=== PATIENT | male | born 1945 | race Caucasian/White ===

== ENCOUNTER 2025-04-03 11:44 | Inpatient (IN) | payer BC, SELFPAY ==
[2025-04-03] VITALS (14 sets, daily range): BP systolic 86–134; BP diastolic 53–80; BMI 32.6
--- NOTE | 2025-04-03 07:01 | ED.GENMED ---
History of Present Illness
<Chata Christianson MD, Resident - Last Filed: 04/03/25 07:35>
General
Chief Complaint: Chest Pain
Source: patient and spouse
Time Seen by Provider: 04/03/25 06:33
History of Present Illness
History of Present Illness:
Patient is an 79-year-old male with past medical history significant for recently diagnosed myasthenia gravis (ocular, taking pyridostigmine), COPD under treating himself, hypertension, family history of massive heart attack in father in 40s with
aortic complaint of chest pain.
He had pressure in his chest on Friday, he went to [facility], which checked his ECG which was normal, they also recommended blood work, chest x-ray, CT chest which could take hours so the patient decided to go home and follow-up with his
primary doctor. The CT scan was done a week ago to evaluate Hodgkin's lymphoma which is common with myasthenia gravis. It came back negative but there were some calcification observed in his major vessels. Patient had the similar chest
discomfort with increased intensity last night with some nausea, but it went away on its own. This morning he woke up again with severe chest pressure that was causing him shortness of breath and he felt very sick this way came to the ER for
further evaluation.
Denies any nausea, vomiting, abdominal pain, body aches
Past History
<Chata Christianson MD, Resident - Last Filed: 04/03/25 07:35>
Past History
ED Past Medical History: COPD, GERD, HTN and Other (Myasthenia gravis)
ED Past Surgical History: None
Social History
Tobacco: Non-smoker
Alcohol: Occasional
Living: with family
Family History
Family History: Early CAD
Review of Systems
<Chata Christianson MD, Resident - Last Filed: 04/03/25 07:35>
Review of Systems
All Other Systems: ROS reviewed and negative except as documented in HPI and ROS
<Blsosom Dong MD - Last Filed: 04/03/25 10:41>
Review of Systems
Allergies reviewed?: Yes
Constitutional: Reports no symptoms
EENT: Reports no symptoms
Respiratory: Reports cough and trouble breathing
Cardiac: Reports no symptoms
ABD/GI: Reports no symptoms
: Reports no symptoms
Musculoskeletal: Reports no symptoms
Skin: Reports no symptoms
Neurological: Reports no symptoms
Endocrine: Reports no symptoms
Hematologic/Lymphatic: Reports no symptoms
Psychiatric: Reports no symptoms
Phy Exam
<Chata Christianson MD, Resident - Last Filed: 04/03/25 07:35>
General Physical Exam
General Presentation: moderate distress (dur tp sob and increased WOB)
General age: appears stated age
General Skin: warm and dry
General Habitus: normal
Cardiovascular Exam
Cardiovascular Exam: regular rate/rhythm, no edema, no gallop and no murmur
Pulmonary Exam
Pulmonary Exam: generalized wheezing
Respirations: accessory muscle use and labored
Neurological Exam
Neurological Exam: alert, oriented x3 and no motor deficits
Musculoskeletal Exam
Musculoskeletal Exam: full ROM
Psychiatric Exam
Psychiatric Exam: normal mood/affect
<Blossom Dong MD - Last Filed: 04/03/25 10:41>
Physical Exam
Physical Exam:
Physical Exam
General: Patient is tachypneic at rest but speaks in full sentences
Neck: supple. no meningeal signs. normal psoterior pharynx
Heart: Tachycardic
Lungs: Mild tachypnea. Diffuse wheezing bilaterally. Right sided crackles
Abdomen: normal bowel sounds. not tender. no CVAT
Neuro: alert and oriented. no focal neurological deficits
Skin: no rash
Psychiatric: well kept. interactive and cooperative
Extremities: no edema. no calf tenderness. negative homans. good distal pulses
Scores
<Chata Christianson MD, Resident - Last Filed: 04/03/25 07:35>
Heart Score for Chest Pain Patients
STEMI patient?: Not applicable
Course
<Chata Christianson MD, Resident - Last Filed: 04/03/25 07:35>
Orders/Labs/Results
Orders:
Orders
04/03/25 05:52
ECG [Electrocardiogram (*1)] Urgent
Reason for Study: Chest Pain
EKG- Treatment ONCE
04/03/25 07:23
CT Chest PE Study Urgent
Comment:
Reason For Exam: SOB, CP
04/03/25 07:30
Albuterol Sulfate [Ventolin Nebules] 15 mg INH R NOW STA
04/03/25 07:31
Dexamethasone Sod Phosphate [Decadron] 10 mg IV NOW STA
04/03/25 07:53
COVID-19 Antigen Urgent
Source: Nasal Swab
Complete Blood Count/With Diff Urgent
Comprehensive Metabolic Panel Urgent
Lipase Urgent
NT-proBNP Urgent
Troponin I Urgent
Influenza A+B Rapid Molecular Urgent
EDGARD Source: Nasal Swab
Specimen Description:
04/03/25 10:37
Azithromycin 500 mg/250 ml [Zithromax Infusion] 500 mg in 250 ml IV NOW
CefTRIAXone [Rocephin] 1,000 mg IV NOW STA
Abnormal Lab Results
04/03/25
07:53
WBC 24.8 H 10^3/uL
(4.8-10.8)
RBC 4.50 L 10^6/uL
(4.70-6.10)
Hct 38.7 L %
(39.0-52.0)
Abs Immat Gran (auto) 0.2 H 10^3/uL
(0-0.05)
Absolute Neuts (auto) 22.0 H 10^3/uL
(1.4-6.5)
Absolute Lymphs (auto) 1.0 L 10^3/uL
(1.2-3.4)
Absolute Monos (auto) 1.2 H 10^3/uL
(0.1-0.6)
Immature Gran % 0.6 H %
(0-0.5)
Neutrophils % 89.1 H %
(42.2-75.2)
Lymphocytes % 4.1 L %
(20.5-51.1)
Sodium 134 L mmol/L
(135-145)
BUN 26 H mg/dl
(9-20)
Glucose 121 H mg/dl
(70-99)
04/03/25 07:53
04/03/25 07:53
Vital Signs
Initial and Last Documented VS:
Initial Vital Signs
Temp Pulse Resp BP Pulse Ox
97.9 F 111 20 122/76 94
04/03/25 05:54 04/03/25 05:54 04/03/25 05:54 04/03/25 05:54 04/03/25 05:54
Last Documented Vital Signs
Temp Pulse Resp BP Pulse Ox
97.9 F 126 24 125/59 94
04/03/25 05:54 04/03/25 10:00 04/03/25 10:00 04/03/25 09:54 04/03/25 09:00
<Blossom Dong MD - Last Filed: 04/03/25 10:41>
Orders/Labs/Results
Orders:
Orders
04/03/25 05:52
ECG [Electrocardiogram (*1)] Urgent
Reason for Study: Chest Pain
EKG- Treatment ONCE
04/03/25 07:23
CT Chest PE Study Urgent
Comment:
Reason For Exam: SOB, CP
04/03/25 07:30
Albuterol Sulfate [Ventolin Nebules] 15 mg INH R NOW STA
04/03/25 07:31
Dexamethasone Sod Phosphate [Decadron] 10 mg IV NOW STA
04/03/25 07:53
COVID-19 Antigen Urgent
Source: Nasal Swab
Complete Blood Count/With Diff Urgent
Comprehensive Metabolic Panel Urgent
Lipase Urgent
NT-proBNP Urgent
Troponin I Urgent
Influenza A+B Rapid Molecular Urgent
EDGARD Source: Nasal Swab
Specimen Description:
04/03/25 10:37
Azithromycin 500 mg/250 ml [Zithromax Infusion] 500 mg in 250 ml IV NOW
CefTRIAXone [Rocephin] 1,000 mg IV NOW STA
Abnormal Lab Results
04/03/25
07:53
WBC 24.8 H 10^3/uL
(4.8-10.8)
RBC 4.50 L 10^6/uL
(4.70-6.10)
Hct 38.7 L %
(39.0-52.0)
Abs Immat Gran (auto) 0.2 H 10^3/uL
(0-0.05)
Absolute Neuts (auto) 22.0 H 10^3/uL
(1.4-6.5)
Absolute Lymphs (auto) 1.0 L 10^3/uL
(1.2-3.4)
Absolute Monos (auto) 1.2 H 10^3/uL
(0.1-0.6)
Immature Gran % 0.6 H %
(0-0.5)
Neutrophils % 89.1 H %
(42.2-75.2)
Lymphocytes % 4.1 L %
(20.5-51.1)
Sodium 134 L mmol/L
(135-145)
BUN 26 H mg/dl
(9-20)
Glucose 121 H mg/dl
(70-99)
04/03/25 07:53
04/03/25 07:53
Vital Signs
Initial and Last Documented VS:
Initial Vital Signs
Temp Pulse Resp BP Pulse Ox
97.9 F 111 20 122/76 94
04/03/25 05:54 04/03/25 05:54 04/03/25 05:54 04/03/25 05:54 04/03/25 05:54
Last Documented Vital Signs
Temp Pulse Resp BP Pulse Ox
97.9 F 126 24 125/59 94
04/03/25 05:54 04/03/25 10:00 04/03/25 10:00 04/03/25 09:54 04/03/25 09:00
<Chata Christianson MD, Resident - Last Filed: 04/03/25 07:35>
MDM/Problems Addressed
Differential Diagnosis Includes:
Acute exacerbation of COPD
ACS
Pulmonary embolism
Exacerbation of myasthenia gravis
GERD
Pancreatitis
MDM/Problems Addressed:
An EKG done in the ER with no acute ST-T changes, will check troponin levels to make sure there is nothing ischemic going on in the heart
Will give an hour treatment of DuoNebs along with Decadron to help expand the airways he is breathing
CT PE study
Observe for improvement in breathing and chest pressure-manage accordingly
<Blossom Dong MD - Last Filed: 04/03/25 10:41>
MDM/Problems Addressed
Chronic conditions affecting care: COPD
Acute Exacerbation and/or Progression of Chronic Illness: COPD
<Chata Christianson MD, Resident - Last Filed: 04/03/25 07:35>
*Pulse Oximetry
SaO2: 95
Oxygen Mode of Delivery: Room air
Patient hypoxic: no
*Critical Care Note
Total Time (30-74mins, 75-104mins- exclusive of procedures): Not Applicable
<Blossom Dong MD - Last Filed: 04/03/25 10:41>
*Radiology
Radiology exam reviewed: radiology read reviewed
*Pulse Oximetry
Comment: Not hypoxic
*EKG
Interpreted by ED Provider?: Yes
Interpretation: abnormal
Comparison EKG: no comparison EKG present
Rate: tachycardiac
Rhythm: sinus
[place]: normal axis
Interval: normal interval
QRS Pattern: normal QRS
Ischemia: non-specific ST changes
*Roof Bolter Operator Interpretation
Rate: tachycardiac
Interpretation: abnormal
Rhythm: sinus
Data Reviewed
Source: patient and spouse
<Blossom Dong MD - Last Filed: 04/03/25 10:41>
Patient Management
Social determinants of health affecting care: Living situation and Strong social support
ED Attending Note
<Chata Christianson MD, Resident - Last Filed: 04/03/25 07:35>
-
Portions of this chart may have been created with voice recognition software.� Occasional wrong word or��sound alike� substitutions may have occurred due to the inherent limitations of voice recognition software.
Discharge Plan
Departure
Patient Disposition: Admit
Date of Disposition: 04/03/25
Time of Disposition: 10:35
Admit to: Med/Surg
Presentation/result/management discussed w/ accepting MD/DO: Hospitalist
Patient with high blood pressure during this ER visit?: Yes
Condition: Good
Covid-19: Negative COVID-19
Discharge Problem:
Pneumonia, Acute exacerbation of chronic obstructive pulmonary disease
Referrals:
Fang,Jori, DO [Family Provider]
Interventions
Interventions:
*Risk Screen - Suicide Last Done: 04/03/25 05:54
*General Assessment Last Done: 04/03/25 05:58
*Neglect/Abuse Screening Last Done: 04/03/25 06:27
*ED COVID-19 Vaccine History Last Done: 04/03/25 06:27
*ED Influenza Vaccine History Last Done: 04/03/25 06:27
[facility] Fall Risk Assessment Tool Last Done: 04/03/25 06:26
ED- Cardiac Assessment Last Done: 04/03/25 06:26
Discharge Date and Time
Print Language: CHILEAN
[2025-04-03] MEDS: DECADRON 10 MG IV (08:02)
[2025-04-03] MEDS: VENTOLIN NEBULES 15 MG INH (08:03)
[2025-04-03 08:11] LABS: Hematocrit 38.7 % (39.0-52.0); Hemoglobin 13.6 g/dL (13.0-18.0); Mean Corp Hgb Conc. 35.1 g/dL (33.0-37.0); Mean Corpuscular Volume 86.0 fL (80.0-94.0); Platelet Count 280 10^3/uL (130-400); Red Cell Dist. Width 12.7 % (11.5-14.5)
[2025-04-03 08:22] LABS: ALT (SGPT) 30 U/L (0-50); AST (SGOT) 29 U/L (17-59); Albumin 4.2 g/dl (3.5-5.0); Alkaline Phosphatase 56 U/L (38-126); Blood Urea Nitrogen 26 mg/dl (9-20); Calcium 9.0 mg/dl (8.4-10.2); Carbon Dioxide 23 mmol/L (22-30); Chloride 103 mmol/L (98-107); Glucose 121 mg/dl (70-99); Lipase 26 U/L (23-300); Potassium 3.7 mmol/L (3.5-5.1); Sodium 134 mmol/L (135-145); Total Protein 6.7 g/dl (6.3-8.2); eGFR > 60.00
[2025-04-03 08:29] LABS: COVID-19 Antigen Negative (Negative)
[2025-04-03 08:33] LABS: Troponin I 0.016 ng/ml
[2025-04-03 08:50] LABS: Nucleated Red Blood Cells % 0 % (-)
[2025-04-03] MEDS: ROCEPHIN 1000 MG IV (11:02)
[2025-04-03] MEDS: ZITHROMAX INFUSION 250 IV (11:03)
--- NOTE | 2025-04-03 11:23 | HPS.HSE ---
Addendum entered and electronically signed by Re Mathias MD 04/03/25 15:02:
I personally seen and examined the patient, I have discussed the case with the resident Dr. Hyde, and I agree with documentation as below and plan of care.
79M with MG, COPD, HTN, P/W SOB, chest tightness, chills. Chronic cough, patient denies change in character, denies fevers. Recent ED visit at OSH for chest tightness, followed up with PCP, outpatient CT chest reportedly unremarkable.
On exam, tachycardic, other VSS. NAD, lungs CTAB, heart RRR, no murmur, abdomen soft/NT/ND/NABS, no LE edema.
Labs consistent with leukocytosis. COVID/flu negative. CT PE study negative for PE, shows mild atelectasis, no effusions, no pneumonia.
A/P
ACS rule out, trend troponins, color television console monitor, echo. Once acute shortness of breath resolves, pursue stress test.
Possible COPD exacerbation, nebs, oral prednisone x 5 days
Possible viral pneumonia, check viral PCR panel, empiric antibiotics as below.
Addendum entered and electronically signed by Luli Hyde MD, Resident 04/03/25 12:40:
hold treadmill stress test until SOB resolves.
Check routine 2D echo.
repeat EKG in am. trend troponin
s/p decadron x1 in ED.
Start prednisone 40 mg oral from 04/04/[address] reveals no lobar consolidation.
Check RSV
Original Note:
Family Physician
-
Family Physician: Jori Strickland, DO
Chief Complaint
-
Shortness of breath
History of Present Illness
79-year-old male with history of hypertension, myasthenia gravis on pyridostigmine, moderate COPD on Symbicort, restless leg presents with shortness of breath, chest tightness. He had chest tightness centrally located, nonradiating which started on
Friday, he went to [facility], his EKG was normal and blood work and chest CT, chest x-ray was pending however it was hours of wait and patient decided to go back home and follow-up with his primary care doctor (Dr Strickland) at [facility].
Patient notes of similar chest discomfort with increased intensity last night with some nausea however it went away on its own. This morning he woke up with severe chest tightness that was causing him short of breath and that is why decided to come
to the ER. He admits to having prolonged lingering cough for about 5 months with chills which started couple days ago. He is with maintenance inhaler. He denies abdominal pain,vomiting, fever, palpitation. The chest CT done outpatient was
unremarkable as he states, no tumors/mass in the setting of myasthenia gravis, showed some calcifications in vessels.
Workup done in the ED: Labs show leukocytosis with left shift, normal troponin, chest CT negative for PE. He is afebrile,tachycardic HR 115-125, on room air with normal BP.
Medical History
Past Medical History
Past Medical History: Reports Other (hypertension, myasthenia gravis on pyridostigmine, moderate COPD on Symbicort, restless leg)
Past Surgical History: Reports None
Social History
Tobacco: Non-smoker
Alcohol: Occasional
Drug: None
Personal:
Living: With Family
Employment: Retired
Family History
Family History: Other (Massive heart attack in father in 40s)
Allergies / Home Medications
Allergies reflects when Allergies were last updated in [employer].
Home Medications with original date entered in [employer]
Allergy/Medication List:
Allergies
Allergy/AdvReac Type Severity Reaction Status Date / Time
latex Allergy Unknown Verified 04/03/25 05:55
Home Medications
Med For Myasthenia Gravis 04/03/25
amlodipine 2.5 mg tablet 2.5 mg PO DAILY 04/03/25
lisinopril 20 mg-hydrochlorothiazide 12.5 mg tablet tab PO BID 04/03/25
ropinirole 2 mg tablet 2 mg PO TID PRN restless legs 04/03/25
Review of Systems
-
History Source: Patient and Family
A 12 point ROS was completed and negative except as noted: Yes
Physical Exam
Vital Signs
Vital Signs
Temp Pulse Resp BP Pulse Ox
97.9 F 126 24 125/59 94
04/03/25 05:54 04/03/25 10:00 04/03/25 10:00 04/03/25 09:54 04/03/25 09:00
Physical Exam
General: Comfortable and Conversant
HEENT: NormoCephalic, Anicteric and Moist mucous membranes
Respiratory: Clear; No Wheezes, Rales, Rhonchi or Crackles
Cardiac: Tachycardia
GI: Soft, Non Tender and Non Distended
Musculoskeletal: No Edema
Skin: Warm and Dry
Neuro: AO x 3
Hematologic/Lymphatic: No Lymphadenopathy
Psych: Calm
Laboratory Results
-
04/03/25 07:53
04/03/25 07:53
Laboratory Results
Total Bilirubin 1.3 mg/dl (0.2-1.3) 04/03/25 07:53
AST 29 U/L (17-59) 04/03/25 07:53
ALT 30 U/L (0-50) 04/03/25 07:53
Alkaline Phosphatase 56 U/L (38-126) 04/03/25 07:53
Troponin I 0.016 ng/ml 04/03/25 07:53
Lipase 26 U/L (23-300) 04/03/25 07:53
Data Reviewed
-
CT Scan: Report Reviewed by me and Discussed with Physician
Medical Tests (Nuc Med, Echo, EKG etc): Image Personally Visualized and interpreted, Report Reviewed by me and Discussed with Physician
Lab Data: Labs Reviewed by me and Discussed with Physician
Impression/Plan
-
IMPRESSION:
Shortness of breath
Leukocytosis
Chest tightness
History of COPD
Essential hypertension
History of myasthenia gravis
History of restless leg syndrome
PLAN:
Shortness of breath
Differential diagnosis: ACS, PE, aortic dissection, CAP, COPD exacerbation
Suspect COPD exacerbation versus CAP.
Normal troponin, EKG- sinus tachycardia, no ST elevation/depression
Chest CT negative for PE
S/p IV ceftriaxone and azithromycin
Continue IV ceftriaxone, transition to doxycycline 100 mg twice daily
DuoNeb as needed
Continue Symbicort home dose.
Tylenol as needed
Leukocytosis
WBC 93258 with left shift. Afebrile
Clinical signs of CAP, lingering chronic cough, chills, SOB
COVID, flu negative
Treat with abx
Monitor WBC and temp curve.
Chest tightness/pressure
Asymptomatic now
Normal troponin, EKG- sinus tachycardia, no ST elevation/depression
Intermediate pre test probability ( HTN, morbid obesity)
Check treadmill stress test.
Check echocardiogram.
Check lipid panel.
History of COPD
Noncompliant with Symbicort
Continue Symbicort and DuoNeb
Essential hypertension
Continue lisinopril-hydrochlorothiazide
Continue amlodipine
Monitor blood pressure
History of myasthenia gravis
Continue home dose pyridostigmine
History of restless leg syndrome
continue ropinirole
DNR '
cholesterol-lowering diet
Lovenox
--- NOTE | 2025-04-03 13:06 | CM ---
Chart reviewed
Spoke with patient and his Elda at ED bedside
Went to [facility] for similar issues a few days ago
Lives in [place] home with 1 LEE
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
no DME
PCP Dr. Jori Strickland
[facility]
no hx VN nor SNF
DCP is to go home and can drive him home
CM will continue to follow up for any dcp needs
[2025-04-03] MEDS: NSS 1000 IV (13:41)
[2025-04-03 13:53] LABS: HDL Cholesterol 57 mg/dl; LDL Cholesterol, Calculated 80 mg/dl; Very Low Density Lipoprotein 13 mg/dl (0-30)
[2025-04-03 14:05] LABS: Troponin I 0.032 ng/ml
[2025-04-03] MEDS: TOPROL XL 25 MG PO (14:06)
[2025-04-03] MEDS: MESTINON 30 MG PO ×3 (14:07→21:05)
[2025-04-03] MEDS: REQUIP PO (14:08)
[2025-04-03] MEDS: LOVENOX 40 MG SC (17:05)
[2025-04-03] MEDS: SYMBICORT 160/4.5 MCG INHALER 2 PUFF INH (18:03)
[2025-04-03 19:11] LABS: Troponin I 0.013 ng/ml
[2025-04-03] MEDS: ZESTRIL PO (20:54)
[2025-04-03] MEDS: ORETIC PO (20:54)
[2025-04-03] MEDS: VIBRAMYCIN 100 MG PO (20:54)
[2025-04-03] MEDS: REQUIP 2 MG PO (21:06)
[2025-04-04] MEDS: MELATONIN 5 MG PO (00:30)
[2025-04-04] MEDS: NSS 1000 IV ×2 (00:32→09:56)
[2025-04-04 01:34] LABS: Troponin I 0.021 ng/ml
[2025-04-04 03:25] VITALS: BP 122/70
[2025-04-04 06:00] VITALS: BMI 32.9
[2025-04-04 07:00] VITALS: BP 131/82
[2025-04-04 07:39] LABS: Hematocrit 36.3 % (39.0-52.0); Hemoglobin 12.9 g/dL (13.0-18.0); Mean Corp Hgb Conc. 35.5 g/dL (33.0-37.0); Mean Corpuscular Volume 84.6 fL (80.0-94.0); Nucleated Red Blood Cells % 0 % (-); Platelet Count 277 10^3/uL (130-400); Red Cell Dist. Width 13.2 % (11.5-14.5)
[2025-04-04] MEDS: SYMBICORT 160/4.5 MCG INHALER 2 PUFF INH (07:50)
[2025-04-04 08:02] LABS: Blood Urea Nitrogen 37 mg/dl (9-20); Calcium 9.3 mg/dl (8.4-10.2); Carbon Dioxide 22 mmol/L (22-30); Chloride 105 mmol/L (98-107); Estimated Creatinine Clearance 54 ml/min; Glucose 117 mg/dl (70-99); Potassium 4.2 mmol/L (3.5-5.1); Sodium 135 mmol/L (135-145); eGFR 55.88
[2025-04-04] MEDS: DELTASONE 40 MG PO (08:28)
[2025-04-04] MEDS: THERAGRAN 1 TABLET PO (08:29)
[2025-04-04] MEDS: MESTINON 30 MG PO ×3 (08:29→17:10)
[2025-04-04] MEDS: ORETIC 12.5 MG PO (08:29)
[2025-04-04] MEDS: NORVASC 5 MG PO (08:31)
[2025-04-04] MEDS: TOPROL XL 25 MG PO (08:31)
[2025-04-04] MEDS: VITAMIN D3 (cholecalciferol) 25 MCG PO (08:31)
[2025-04-04] MEDS: ZESTRIL 20 MG PO (08:32)
[2025-04-04] MEDS: VIBRAMYCIN 100 MG PO (08:32)
[2025-04-04] MEDS: VISBIOME 1 CAP PO (08:32)
[2025-04-04] MEDS: REQUIP 1 MG PO ×2 (09:53→12:03)
[2025-04-04] MEDS: ROCEPHIN 1000 MG IV (09:53)
[2025-04-04] MEDS: STERILE WATER FOR INJECTION 10 ML IV (09:53)
--- NOTE | 2025-04-04 10:17 | W.PN.HOSP.TC ---
Today's Communication/Plan
-
Ambulate
Discharge on oral antibiotics and oral prednisone if breathing is okay with ambulation
Assessment / Plan
Assessment / Plan
79M with MG, COPD, HTN, P/W SOB, chest tightness, chills. Chronic cough, patient denies change in character, denies fevers. Recent ED visit at OSH for chest tightness, followed up with PCP, outpatient CT chest reportedly unremarkable.
Assessment/plan:
#Mild acute COPD exacerbation
Status post IV dexamethasone in the ER
Continue prednisone 40 mg daily for 6 more days to complete a 7 day course
Continue bronchodilators
#Acute viral syndrome
COVID/flu/RSV negative
Chest CT negative for PE, negative for pneumonia
Leukocytosis improved on antibiotics
Will discharge on cefdinir and doxycycline to complete a 7-day course
#Chest tightness
Chest CT negative for PE, negative for pneumonia
Suspect from viral syndrome and COPD
Serial troponins negative, EKG nonischemic
Recommend follow-up with cardiology in the office
#Essential hypertension
Continue amlodipine, metoprolol, lisinopril, hydrochlorothiazide
#Myasthenia gravis
Continue pyridostigmine
#Obesity due to excess calories
Affects all aspects of care
DVT prophylaxis�subcu Lovenox
Full code
Total time spent to see the patient on the floor, examine the patient, review data and lab results, discuss treatment plan with patient, nursing staff around 39 minutes.
Physical Exam
General: Obese, no acute distress
HEENT: Normocephalic, Atraumatic, EOMI, MMM
Respiratory: Coarse breath sounds with scattered rhonchi
Cardiac: Normal S1/S2, Regular Rate and Rhythm
GI: Soft, Nontender, Nondistended, Normal Bowel Sounds
Extremities: No Clubbing, Cyanosis, or Edema
Neuro: Nonfocal/Grossly Intact
Anticipated Discharge: Today
Subjective/Interval History
-
Date of Service: April 04, 2025
Patient reports his shortness of breath has resolved. His cough and wheezing continue to improve. Denies chest pain. No fever, no vomiting. He is requesting discharge today.
Objective Data
-
Labs:
Laboratory Results
04/04/25
07:11
WBC 18.9 H
Hgb 12.9 L
Hct 36.3 L
Plt Count 277
Sodium 135
Potassium 4.2
Chloride 105
Carbon Dioxide 22
BUN 37 H
Creatinine 1.3
Glucose 117 H
Calcium 9.3
Vital Signs:
Vital Signs
Temp Pulse Resp BP Pulse Ox
97.2 F 82 18 131/82 96
04/04/25 07:00 04/04/25 08:33 04/04/25 08:33 04/04/25 07:00 04/04/25 08:33
I&O
04/03/25 04/04/25 04/05/25
06:59 06:59 06:59
Intake Total 3140 / 3140
Output Total 1100 / 1100
Balance 2039
[2025-04-04 11:05] VITALS: BP 134/70
--- NOTE | 2025-04-04 11:51 | CM ---
Addendum entered by Demetria Lam 04/04/25 11:55:
IMM explained & signed. In chart
Original Note:
Patient seen at bedside with
await echo
discussed vn-declines
PLAN: Home, no needs
to transport
--- NOTE | 2025-04-04 14:56 | W.DCSUMMARY ---
Discharge Summary
Discharge Data
Date of Admission: 04/03/25
Date of Discharge: 04/04/25
-
Pending Results: No
Hospital Course
Discharge diagnosis:
Mild acute chronic obstructive pulmonary disease exacerbation
Acute viral syndrome
Chest tightness
Essential hypertension
Myasthenia gravis
Obesity due to excess calories
Chest CT:
Vascular: Satisfactory opacification of the pulmonary arterial distribution. Respiratory motion artifact and streak artifact. No filling defect is identified to suggest an acute pulmonary thromboembolus. No evidence of thoracic aortic dissection.
Thyroid: Unremarkable.
Lymph nodes: No axillary, hilar, or mediastinal lymphadenopathy. Calcified right hilar lymph nodes.
Mediastinum: The heart is normal in size. No pericardial effusion. Coronary artery calcifications.
Lungs: No focal consolidation, pleural effusion, or pneumothorax. 10 mm calcified granuloma in the right upper lobe just above the major minor fissures. Mild bilateral dependent atelectasis. The trachea and central airways are patent.
Upper abdomen: Splenic and hepatic granulomas.
Osseous structures: Chronic degenerative changes of the spine.
Echo:
1. Technically difficult study. Fair image quality.
2. Overall left ventricular function appears normal with estimated ejection fraction 55 to 60%.
3. No significant valvular abnormalities detected.
4. Ascending aorta 3.9 cm.
5. No prior study available for comparison.
Hospital course:
79-year-old male with a past medical history of myasthenia gravis, COPD, and hypertension who presented with shortness of breath, chest tightness, and chills. Patient received IV dexamethasone and IV antibiotics. He was negative for COVID, flu,
RSV. Chest CT was also negative. Serial troponins were negative, EKG nonischemic, echocardiogram normal. Suspect he has a mild acute COPD exacerbation in conjunction with an acute viral syndrome. By the following day, he felt remarkably better.
His shortness of breath and chills resolved. He requested discharge. Patient is medically stable for discharge. He needs to follow-up with his PCP in 1 week.
Disposition: Home self-care
Discharge planning: Required 39 minutes
Discharge Plan
-
Patient Disposition: Home (Routine Discharge)
Discharge Diagnosis/Procedures: Mild acute chronic obstructive pulmonary disease exacerbation, acute viral syndrome
Condition: Good
Diet: Low Fat, Low Cholesterol and 2 Gram Sodium
Activity: As tolerated
Driving Restrictions: As prior to admission
Activity Restrictions/Additional Instructions:
Please take your antibiotics and prednisone as prescribed, and follow-up with your primary care provider in 1 week.
Referrals:
Jori Strickland DO [Family Provider] - in one week
Prescriptions:
New
doxycycline hyclate 100 mg Capsule
100 mg PO Q12 6 Days Qty: 12 0RF
prednisone 20 mg Tablet
40 mg PO DAILY 6 Days Qty: 12 0RF
cefdinir 300 mg capsule
300 mg PO BID 6 Days Qty: 12 0RF
Continued
lisinopril-hydrochlorothiazide 20-12.5 mg Tablet
1 tab PO BID
ropinirole 2 mg Tablet
2 mg PO HS
pyridostigmine bromide 60 mg Tablet
30 mg PO QID
amlodipine [Norvasc] 5 mg Tablet
5 mg PO DAILY
ropinirole 2 mg Tablet
1 mg PO BID@1000,1300
therapeutic multivitamin Tablet
1 tab PO DAILY
docusate sodium [Colace] 100 mg Capsule
100 mg PO DAILYPRN PRN (Reason: constipation)
cholecalciferol (vitamin D3) [Vitamin D3] 25 mcg (1,000 unit) Tablet
25 mcg PO DAILY
Visbiome 112.5 billion cell Capsule
1 cap PO DAILY
budesonide-formoterol [Symbicort] 160-4.5 mcg/actuation Hfa Aerosol Inhaler
2 inh INHALATION R DAILY
Discharge Orders:
Discharge Patient (As Directed); Ordered 04/04/25
Ordered By: Jose A Do
Discharge Date and Time
Discharge Date/Time: 04/04/25 18:00
Print Language: MALAGASY
[2025-04-04 15:33] VITALS: BP 154/76
[2025-04-04] MEDS: PREVNAR 20 0.5 ML IM (15:41)
[2025-04-04] MEDS: LOVENOX SC (17:09)
== END 2025-04-04 18:00 | disposition home or self-care (01) | DRG 191 ==
LOC: 4 WEST ACU 11:44
PROVIDERS: Student in an Organized Health Care Education/Training Program; ADMITTING PHYSICIAN Internal Medicine; ATTENDING PHYSICIAN Family Medicine; EMERGENCY PHYSICIAN Emergency Medicine; FAMILY PHYSICIAN Family Medicine
DX: J44.1 Chronic obstructive pulmonary disease with (acute) exacerbation (principal); J98.11 Atelectasis; Z11.52 Encounter for screening for COVID-19; J44.0 Chronic obstructive pulmonary disease with (acute) lower respiratory infection; Z82.49 Family history of ischemic heart disease and other diseases of the circulatory system; I10 Essential (primary) hypertension; G70.00 Myasthenia gravis without (acute) exacerbation; E66.09 Other obesity due to excess calories; Z68.32 Body mass index [BMI] 32.0-32.9, adult
CPT/HCPCS: 71275; 80048; 80053; 80061; 83690; 83880; 84484; 85025; 87449; 87502; 87807; 87811; 87899; 90677; 93005; 93306; 94640; 96365; 96375; 99285; G0009; Q9967